=== PATIENT | male | born 1955 | race Caucasian/White ===

== ENCOUNTER → 2016-07-09 | Outpatient (CLI) | payer OTHER | LOC: FIMAGING 14:55 | PROVIDERS: ATTEND Orthopaedic Surgery | DX: Z01.818 Encounter for other preprocedural examination (principal); M17.11 Unilateral primary osteoarthritis, right knee ==

== ENCOUNTER 2016-07-31 08:11 | Inpatient (IN) | payer OTHER ==
[~2016-07-31 08:11] MED LIST: ACETAMINOPHEN 325 MG TAB PO ONE; BUPIVACAINE 0.25% 30 ML SDV ONE; BUPIVACAINE 0.5% 30 ML SDV ONE; BUPIVACAINE/EPI 0.25% 30 ML SDV ONE; BUPIVACAINE/EPI 0.5% 30 ML SDV ONE; CEFAZOLIN 2 GM/DEXTR 100 ML IV ONE; CHLORHEXIDINE GLUC HIBICLENS 118 ML BTL TP ONE; DEXAMETHASONE 4 MG/ML VIAL IVP ONE; FAMOTIDINE 20 MG TAB PO ONE; ROPI/epiNEPH/KETOROLAC JOINT COCKTAIL IU ONE; SKIN ADHESIVE (DERMABOND) 1 EACH TP ONE; TRANEXAMIC ACID 3,000 MG in NS 50 ML IRR ONE; TRANEXAMIC ACID 3,000 MG/50 ML BAG IRR ONE; VANCOMYCIN 1 GM VIAL IV ONE
[2016-07-31] MEDS ORDERED: FAMOTIDINE 20 MG TAB ONE (08:44)
[2016-07-31] MEDS ORDERED: CEFAZOLIN 2 GM/DEXTROSE/100 ML BAG IV ONE (08:44)
[2016-07-31] MEDS ORDERED: ACETAMINOPHEN 325 MG TAB ONE (08:44)
[2016-07-31] MEDS ORDERED: DEXAMETHASONE 4 MG/ML VIAL ONE (08:44)
[2016-07-31] MEDS ORDERED: LR 1,000 ML IV ONE (09:00)
[2016-07-31] MEDS ORDERED: MIDAZOLAM 2 MG/2 ML VIAL ONE (09:35)
[2016-07-31] MEDS ORDERED: fentaNYL 100 MCG/2 ML INJ ONE (09:43)
[2016-07-31] MEDS ORDERED: PROPOFOL/EMULSION 500 MG/50 ML BOTTLE IV ONE ×2 (09:44→10:21)
[2016-07-31] MEDS ORDERED: ONDANSETRON 4 MG/2 ML VIAL ONE (10:23)
[2016-07-31] MEDS ORDERED: PROPOFOL 200 MG/20 ML VIAL ONE ×2 (10:54→11:10)
[2016-07-31] MEDS ORDERED: MAGNESIUM HYDROXIDE 30 ML UDCUP PO PRN (11:29)
[2016-07-31] MEDS ORDERED: METOCLOPRAMIDE 10 MG/2 ML VIAL IVP PRN (11:29)
[2016-07-31] MEDS ORDERED: LACTULOSE 20 GM/30 ML UDCUP PO PRN (11:29)
[2016-07-31] MEDS ORDERED: BISACODYL 10 MG SUPP PR PRN (11:29)
[2016-07-31] MEDS ORDERED: diphenhydrAMINE 25 MG CAP PO PRN (11:29)
[2016-07-31] MEDS ORDERED: TEMAZEPAM 15 MG CAP PO PRN (11:29)
[2016-07-31] MEDS ORDERED: PROMETHAZINE HCL 25 MG/ML INJ IVP PRN (11:29)
[2016-07-31] MEDS ORDERED: DIPHENOXYLATE/ATROPINE LOMOTIL 1 TAB PO PRN (11:29)
[2016-07-31] MEDS ORDERED: PHARMACY PAIN CONSULT 1 EA MISC PRN (11:29)
[2016-07-31] MEDS ORDERED: POLYETHYLENE GLYCOL 3350 17 GM PKT PO PRN (11:29)
[2016-07-31] MEDS ORDERED: ONDANSETRON 4 MG/2 ML VIAL IVP PRN (11:29)
[2016-07-31] MEDS ORDERED: ONDANSETRON DISINTEGRATING 4 MG TAB PO PRN (11:29)
[2016-07-31] MEDS ORDERED: PROMETHAZINE HCL 25 MG SUPPR PR PRN (11:29)
--- NOTE | 2016-07-31 11:29 | POSTOPPROG ---
Post Op Note Date of Operation: 07/31/16 Surgeon: Nidhi Roland Hardboard Press Operator: fred roland Anesthesiologist: dr. hutchison Anesthesia: Spinal, Other (Specify) (adductor canal block) Pre-op Diagnosis: R TKA Post-op Diagnosis: same Indication: right knee pain due to OA that failed conservative measures Procedure: R TKA with robot assistance Findings: severe knee OA Inf/Abcess present in the surg proc area at time of surgery?: No EBL: 50-100
[2016-07-31] MEDS ORDERED: LR 1,000 ML IV SCH (11:30)
[2016-07-31] MEDS: ACETAMINOPHEN 325 MG TAB PO SCH ×4 (13:39→23:15)
[2016-07-31] MEDS: oxyCODONE IR 5 MG TAB PO PRN ×3 (13:59→21:04)
[2016-07-31] MEDS: CYCLOBENZAPRINE 10 MG TAB PO PRN ×2 (15:41→21:03)
[2016-07-31] MEDS: ceFAZolin 2 GM/DEXTROSE 100 ML IV SCH (18:13)
[2016-07-31] MEDS: ASPIRIN 325 MG TAB PO SCH (21:03)
[2016-07-31] MEDS: FAMOTIDINE 20 MG TAB PO SCH (21:03)
[2016-07-31] MEDS: SENNOSIDES/DOCUSATE SODIUM TAB PO SCH (21:04)
--- NOTE | 2016-07-31 21:56 | GOP ---
[f rep st] OPERATIVE REPORT DATE OF OPERATION: 07/31/2016 SURGEON: Paz Montaño MD TICKET BROKER: Dominga Montaño PA-C. ANESTHESIA: Spinal. PREOPERATIVE DIAGNOSIS: Right knee osteoarthritis. POSTOPERATIVE DIAGNOSIS: Right knee osteoarthritis. PROCEDURE PERFORMED: Right total knee arthroplasty with computer navigation and robotic assist. FINDINGS/PATHOLOGY: Severe tricompartmental osteoarthritis. ESTIMATED BLOOD LOSS: 30 cc. INDICATIONS: This is a 61-year-old male with severe and progressive pain and deformity of the right knee unresponsive to conservative care. Risks and benefits of the surgical intervention were explained in detail. DESCRIPTION OF PROCEDURE: The patient was brought to the operative room and placed on the table in the supine position. Spinal anesthesia was induced without difficulty. A pneumatic tourniquet was applied about the right proximal thigh, and the leg was prepped and draped in a sterile fashion. The leg archuleta was applied. After exsanguination by elevation the tourniquet was inflated to 275 mm of mercury. Incision was made anterior medial from the tibial tuberosity to a point 2 cm proximal to the superior pole of the patella. Medial parapatellar arthrotomy was carried out from the superior pole of the patella and posteriorly in line with the fibers of the Type II VMO. The medial collateral ligament was elevated and the infrapatellar fat pad was resected. The patella was everted and the articular surface was excised. A 40 mm patellar button was placed. Attention was turned first to the distal aspect of the right femur. At 3 cm proximal to the medial rise of the femur, 2 percutaneous half pins were placed for fixation of the femoral array. In a similar fashion, 2 pins were placed anteromedial on the tibia for fixation of the tibial array. External land marking and registration of the hip center was performed without difficulty. Internal femoral and tibial registration was carried out without difficulty and the femoral and tibial checkpoints were placed and verified for accuracy. Attention was turned to the femur. The foot print for the size 8 femoral component was cut with the saw using the PPDai robotic system and verified for accuracy against the CT based plan. In a similar fashion, saw was used to cut the footprint for the size 8 tibial component using the PPDai system and verified for accuracy against the CT based plan. The tibial articular surface was excised without difficulty, followed by the intercondylar box cut. The knee was extended and the remnants of the medial and lateral meniscus were excised. The posterior capsule was injected with ropivacaine, epinephrine and Toradol. A size 8 MIS mini-keel tibial tray was positioned. Trial reduction was then carried out. There was excellent range of motion, alignment, and stability using the 9 mm polyethylene. All trials were then removed. The joint was thoroughly irrigated and carefully dried. Two packages of cement and 2 grams of vancomycin were mixed in the vacuum mixer and placed on the fixation surfaces of all surfaces of the components. The components were implanted and all excess cement was thoroughly removed. The permanent 9 mm polyethylene was placed without difficulty. The tourniquet was deflated and all bleeders were coagulated. The wound was thoroughly irrigated and closed using interrupted sutures of 2-0 Vicryl for the joint capsule. The subcu was closed with 3-0 Vicryl and the skin with 4-0 Monocryl. Dermabond and Steri-Strips were applied followed by a compressive dressing. The patient was then moved from the operating room to the recovery room in good condition, having tolerated the procedure well. /[id number]/MODL MTDD
[2016-08-01] MEDS: ceFAZolin 2 GM/DEXTROSE 100 ML IV SCH (00:52)
[2016-08-01] MEDS: oxyCODONE IR 5 MG TAB PO PRN ×3 (02:44→10:45)
[2016-08-01] MEDS: ACETAMINOPHEN 325 MG TAB PO SCH ×2 (05:17→11:02)
[2016-08-01 05:49] LABS: HEMATOCRIT 34.2 % (40.0-51.0); HEMOGLOBIN 11.9 g/dL (13.7-17.5)
[2016-08-01] MEDS ORDERED: LEVOTHYROXINE 50 MCG TAB PO SCH (06:00)
[2016-08-01 08:24] VITALS: BP 107/75; PULSE 48; RESP 18; TEMP 98.2
[2016-08-01] MEDS: CYCLOBENZAPRINE 10 MG TAB PO PRN (08:31)
[2016-08-01] MEDS: ASPIRIN 325 MG TAB PO SCH (08:31)
[2016-08-01] MEDS: SENNOSIDES/DOCUSATE SODIUM TAB PO SCH (08:32)
[2016-08-01] MEDS: FAMOTIDINE 20 MG TAB PO SCH (08:32)
--- NOTE | 2016-08-01 09:17 | SOAPPROG ---
SOAP Progress Note Assessment/Plan: Assessment: Patient is doing well POD 1 s/p R TKA 1.Pain management: pain is well controlled on oral pain meds 2.Anemia: level is expected initially postop. Asymptomatic. Cont to monitor for symptoms 3.VTE ppx: recommend aspirin 325mg daily. Cont TIFFANIE joe and SCD 4. d/c planning: d/c to home today pending release from PT 5. muscle spasm: patient states flexeril alleviates pain, will send script via our EMR system to his pharmacy this morning. Plan: 08/01/16 09:15 08/01/16 09:15 Subjective: Valdo is doing well today, denies SOB, chest pain and N/v. states spasms improved with flexeril Objective: Vital Signs Temp Pulse Resp BP Pulse Ox 36.8 C 48 L 18 107/75 93 08/01/16 08:00 08/01/16 08:00 08/01/16 08:00 08/01/16 08:00 08/01/16 08:00 Laboratory Results 08/01/16 05:11 07/31/16 08/01/16 08/02/16 05:59 05:59 05:59 Intake Total 3171 Output Total 2100 Balance 1071 RLE: incision dressing is clean and dry, NVI, +pf/df ICD10 Worksheet Patient Problems: Problems Problem Status Onset Primary localized osteoarthritis of right knee Acute
[2016-08-01 10:02] VITALS: O2SAT 96
--- NOTE | 2016-08-01 11:21 | GDS ---
[f rep st] DISCHARGE SUMMARY ADMISSION DIAGNOSIS: Right knee osteoarthritis. DISCHARGE DIAGNOSIS: Right knee osteoarthritis. PROCEDURE: Right total knee arthroplasty. VTE PROPHYLAXIS: Aspirin recommended for 3 weeks daily. BRIEF DESCRIPTION OF HOSPITAL STAY: Patient was admitted for an elective joint arthroplasty. The p atient tolerated the procedure well and has passed physical therapy. The patient was given appropri ate antibiotic prophylaxis and venous thromboembolism prophylaxis. The patient's pain was well cont rolled on oral pain medication, patient was holding down food, and had urinated. Decision was made to discharge the patient. The patient was given post-operative prescriptions pre-operatively. PLAN: Please follow up with Dr. Montaño's office as scheduled August 20 at 4 p.m. /[id number]/MODL
== END 2016-08-01 11:13 | disposition home or self-care (01) | DRG 470 ==
LOC: F3E 08:11 → F3N 10:14 → EEVIPCON 12:15 → F3N 12:56
PROVIDERS: ADMIT Orthopaedic Surgery; ATTEND Orthopaedic Surgery
DX: M17.11 Unilateral primary osteoarthritis, right knee (principal)
CPT/HCPCS: 97110-GP; 97116-GP; 97161-GP; 97165-GO; 97530-GP; C1713; J0171; J0690; J1100; J1885; J2250; J2405; J2704; J2795; J3010; J3370

== ENCOUNTER → 2016-08-09 | Outpatient (CLI) | payer OTHER | LOC: FIMAGING 15:45 | PROVIDERS: ATTEND Orthopaedic Surgery | DX: M79.661 Pain in right lower leg (principal); M79.89 Other specified soft tissue disorders; Z96.651 Presence of right artificial knee joint ==

== ENCOUNTER 2016-08-11 08:58 | Emergency (ER) | payer OTHER ==
[2016-08-11 09:03] VITALS: BP 133/88; PULSE 67; RESP 18; O2SAT 94
--- NOTE | 2016-08-11 09:09 | EDPHY ---
H & P Stated Complaint: right knee replacement 07/31, sudden sharp pain starting 0115 Time Seen by Provider: 08/11/16 09:08 HPI/ROS: CHIEF COMPLAINT: Right knee pain and swelling status post knee replacement July 31 HISTORY OF PRESENT ILLNESS: Patient presents to the ED with acute right knee pain and swelling that began after he sustained a mild twisting injury earlier today. The patient is status post knee replacement surgery on July 31 of this year. The patient has been evaluated recently for possible DVT secondary to right calf pain and swelling with a negative lower extremity ultrasound. The patient denies any acute numbness or weakness. He denies fever. His symptoms began acutely after sustaining a twisting injury earlier this morning. The patient reports marked swelling along the knee joint. He reports that he is unable to bear weight. REVIEW OF SYSTEMS: A comprehensive 10 point review of systems is otherwise negative aside from elements mentioned in the history of present illness. Source: Patient Exam Limitations: No limitations - Personal History Current Tetanus/Diphtheria Vaccine: Yes Current Tetanus Diphtheria and Acellular Pertussis (TDAP): Yes Tetanus Vaccine Date: < 10 years - Medical/Surgical History Hx Asthma: No Hx Chronic Respiratory Disease: No Hx Diabetes: No Hx Cardiac Disease: No Hx Renal Disease: No Hx Cirrhosis: No Hx Alcoholism: No Hx HIV/AIDS: No Hx Splenectomy or Spleen Trauma: No Other PMH: [place] virus. total right knee. hypothyroid - Social History Smoking Status: Never smoked - Physical Exam Exam: General Appearance: Alert, no distress Eyes: Pupils equal and round no pallor or injection Respiratory: There are no retractions, lungs are clear to auscultation Cardiovascular: Regular rate and rhythm Gastrointestinal: Abdomen is soft and nontender, no masses, bowel sounds normal Neurological: Sensation intact to light touch throughout the right lower extremity, normal motor function noted to right lower extremity Skin: Surgical incision clean dry and intact Extremities: Postoperative ecchymosis noted, right joint effusion, minimal post at operative erythema Constitutional: Initial Vital Signs Temperature (C) 36.7 C 08/11/16 09:01 Heart Rate 67 08/11/16 09:01 Respiratory Rate 18 08/11/16 09:01 Blood Pressure 133/88 H 08/11/16 09:01 O2 Sat (%) 94 08/11/16 09:01 O2 Delivery Mode Room Air Allergies/Adverse Reactions: milk Allergy (Severe, Verified 08/11/16 09:00) Unknown Home Medications: Medication Instructions Recorded Levothyroxine [Synthroid 50 mcg 50 mcg PO HS 06/28/16 (*)] Acetaminophen [Tylenol 325mg (*)] 650 mg PO Q6HRS #0 tab 08/01/16 Aspirin [Aspirin 325 mg (*)] 325 mg PO DAILY #0 tab 08/01/16 Cyclobenzaprine [Flexeril 10 MG 10 mg PO Q8HRS PRN #0 tab 08/01/16 (*)] Sennosides/Docusate Sodium 1 - 2 tab PO BID #0 tab 08/01/16 [Senokot-S] celeCOXIB [Celebrex (*)] 200 mg PO DAILY #0 cap 08/01/16 oxyCODONE IR [Oxycodone Ir (*)] 5 - 10 mg PO Q3HRS PRN #0 tab 08/01/16 Medical Decision Making - Diagnostics Imaging: Right knee x-ray: No evidence of hardware failure or acute fracture, joint effusion noted. Images reviewed by myself and discussed with radiologist. ED Course/Re-evaluation: The patient presents to the ED with a likely hemarthrosis following a twisting injury. The patient was verbally consented to undergo a aspiration of his right knee joint following consultation with Dr. Kieran Montaño the patient's primary orthopedic surgeon. Under sterile conditions I attempted a arthrocentesis however was unable to aspirate a liquid hemarthrosis. The patient did appear to have a consolidated clot which aspirated into the syringe. I did consult with Dr. Kieran Montaño. The patient will be discharged home with crutches. He will follow up with Orthopedic surgery for a recheck in the coming days. The patient will be advised to return to the ED for fever, markedly worsening pain or other concerns. The patient was seen in consultation by OMID Perez who attempted a prepatellar aspiration with similar results. The patient will be discharged home with crutches. A prescription for Zofran, he is given additional pair of Sidney hose and a 4 inch Misael wrap. Differential Diagnosis: Differential diagnosis considered includes prostatic fracture, hardware failure , hemarthrosis, septic arthritis - Data Points Medications Given: Discontinued Medications Ondansetron HCl (Zofran Odt) 4 mg PO EDNOW ONE Stop: 08/11/16 11:11 Last Admin: 08/11/16 11:11 Dose: 4 mg Oxycodone/Acetaminophen (Percocet 5/325) 1 tab PO EDNOW ONE Stop: 08/11/16 09:29 Last Admin: 08/11/16 09:28 Dose: 1 tab Departure - Departure Disposition: Home, Routine, Self-Care Clinical Impression: Hemarthrosis following procedure Condition: Good Instructions: Hemarthrosis (ED) Additional Instructions: 1. Crutches as needed for support with ambulation. 2. Please return to the ED for fever, markedly worsening pain or other concerns. 3. Please follow up as scheduled with Dr. Kieran Montaño. Referrals: Nidhi Montaño MD [Medical Doctor] - As per Instructions
[2016-08-11] MEDS ORDERED: OXYCODONE/APAP 5/325 TAB ONE (09:21)
[2016-08-11] MEDS ORDERED: OXYCODONE/APAP 5/325 TAB PO ONE ×2 (09:28→11:29)
[2016-08-11] MEDS ORDERED: ONDANSETRON DISINTEGRATING 4 MG TAB ONE (11:09)
[2016-08-11] MEDS ORDERED: ONDANSETRON DISINTEGRATING 4 MG TAB PO ONE (11:10)
[2016-08-11 12:15] VITALS: TEMP 98.2
--- NOTE | 2016-08-12 22:36 | GCON ---
[f rep st] CONSULTATION ORTHOPEDIC CONSULT CHIEF COMPLAINT: Acute onset right knee pain in setting of recent TKA by Dr. Montaño. HISTORY OF PRESENT ILLNESS: The patient presents to the ED today due to sudden increase in pain while walking today. ED physician, Gray Candelaria, called for consult in regards to the patient. The patient describes an incident where he was walking to the bathroom and took a step, no twisting, no falls, no trauma, and had an increase in immediate swelling and pain in the right knee. Patient denies fever and chills. Patient states pain is terrible and uncontrollable. Patient states that he last took an oxycodone one 5 mg tablets 4 hours ago. The patient states he has difficulty with range of motion now and putting weight on it due to pain. Prior to the incident this morning, patient states he was doing really well. REVIEW OF SYSTEMS: See HPI. PAST MEDICAL HISTORY: Significant for a recent right TKA. PHYSICAL EXAM: GENERAL: Patient is resting comfortably in bed, no acute distress. MUSCULOSKELETAL: The patient has ecchymosis along his entire right lower leg and upper thigh. The patient has effusion of the right knee joint and prepatellar space. The patient is tender to palpation over his anterior knee. Mildly tender to palpation medial and lateral joint lines. Active extension is intact. The patient is able to move the leg although limited due to pain. Range of motion 10-50. IMAGING: X-rays were reviewed with Dr. Montaño. No acute fractures and no changes since last x-rays taken postoperatively after surgery. IMPRESSION: A male with right prepatellar effusion, possible joint hemarthrosis as well, in setting of recent right total knee arthroplasty. PLAN: Discussed patient with Dr. Montaño. Attempted a knee prepatellar aspiration, withdrew about 6 cc of bloody fluid, which did not successful remove the fluid present. The patient tolerated the procedure well. Discussed in length with the patient pain control including that patient should increase his oxycodone intake because he has only been taking 5 mg every 4 hours. If needed, he may take up to 15 mg Q3 hours. The patient states he is comfortable with going home. States as long as he can use the crutches and get around he should be able to d/c to home. The patient has his friend, Dr. Caceres, present with him, who will be driving him home as his is disabled and may have difficulty driving him home. PROCEDURE: Right knee prepatellar aspiration done in a sterile fashion. 2 cc of 1% lidocaine were injected. 6 cc of bloody aspiration was removed. Patient tolerated the procedure well. Follow up in 2 days in clinic, earlier if issues arise. /[id number]/MODL MTDD
== END 2016-08-11 12:19 | disposition home or self-care (01) ==
DX: T84.89XA Other specified complication of internal orthopedic prosthetic devices, implants and grafts, initial encounter (principal); Y79.2 Prosthetic and other implants, materials and accessory orthopedic devices associated with adverse incidents

== ENCOUNTER 2016-08-12 00:25 | Inpatient (IN) | payer OTHER ==
[2016-08-12] MEDS ORDERED: HYDROmorphONE/DILAUDID 6 MG/30 ML PCA IV ONE (01:26)
[2016-08-12] MEDS ORDERED: TEMAZEPAM 15 MG CAP PO PRN (02:23)
[2016-08-12] MEDS ORDERED: ONDANSETRON 4 MG/2 ML VIAL IVP PRN (02:23)
[2016-08-12] MEDS ORDERED: ONDANSETRON DISINTEGRATING 4 MG TAB PO PRN (02:23)
[2016-08-12] MEDS ORDERED: NALOXONE HCL 0.4 MG/ML INJ IVP PRN (02:24)
[2016-08-12] MEDS ORDERED: HYDROmorphONE/DILAUDID 6 MG/30 ML PCA IV PRN (02:24)
[2016-08-12] MEDS ORDERED: HYDROmorphONE/DILAUDID 1 MG/ML SYR IVP PRN ×2 (02:25→23:55)
[2016-08-12] MEDS: oxyCODONE IR 5 MG TAB PO PRN ×6 (03:01→23:20)
[2016-08-12 05:02] LABS: % IMMATURE GRANULYOCYTES 0.4 % (0.0-1.1); ABSOLUTE IMMATURE GRANULOCYTES 0.04 10^3/uL (0.00-0.10); ADD DIFF? NO; ADD MORPH? NO; ADD SCAN? NO; ATYPICAL LYMPHOCYTE FLAG 10 (0-99); FRAGMENT RBC FLAG 0 (0-99); HEMATOCRIT 32.8 % (40.0-51.0); HEMOGLOBIN 11.3 g/dL (13.7-17.5); LEFT SHIFT FLG 0 (0-99); LIPEMIA HEMOLYSIS FLAG 90 (0-99); MEAN CELL HEMOGLOBIN CONCENTR. 34.5 g/dL (32.4-36.7); MEAN CELL VOLUME 89.9 fL (81.5-99.8); MEAN PLATELET VOLUME 8.9 fL (8.7-11.7); PLATELET CLUMPS FLAG 0 (0-99); PLATELET COUNT 284 10^3/uL (150-400); RED BLOOD CELL COUNT 3.65 10^6/uL (4.40-6.38); RED CELL DISTRIBUTION WIDTH 12.6 % (11.5-15.2)
[2016-08-12 05:23] LABS: ALANINE AMINOTRANSFERASE 64 IU/L (21-72); ALBUMIN 3.3 g/dL (3.5-5.0); ALKALINE PHOSPHATASE 68 IU/L (38-126); ANION GAP 10 mEq/L (8-16); ASPARTATE AMINOTRANSFERASE 38 IU/L (17-59); BILIRUBIN,TOTAL 1.4 mg/dL (0.1-1.4); CALCIUM 8.4 mg/dL (8.5-10.4); CARBON DIOXIDE 25 mEq/l (22-31); CHLORIDE 103 mEq/L (97-110); CREATININE 0.8 mg/dL (0.7-1.3); GLOMERULAR FILTRATION RATE > 60; GLUCOSE 109 mg/dL (70-100); POTASSIUM 4.1 mEq/L (3.5-5.2); SODIUM 138 mEq/L (134-144); TOTAL PROTEIN 6.2 g/dL (6.3-8.2)
--- NOTE | 2016-08-12 07:59 | GHP ---
[f rep st] HISTORY AND PHYSICAL DATE OF ADMISSION: 08/12/2016 CHIEF COMPLAINT: Right leg swelling. HISTORY OF PRESENT ILLNESS: This is a 61-year-old male with really no past medical history. He und erwent right knee arthroplasty 2 weeks ago. He had been doing well until 2 nights ago, when he was walking and he felt a sudden onset of pain and swelling in the right knee. This has worsened. He c mj to the emergency department yesterday morning and both the ER doctor and Dr. Montaño's PA atte mpted to aspirate the knee, but was unable to. He was sent home at that time and instructed to cont inue pain control. However, pain became a lot worse and he went to the emergency room at [facility], who then transferred him here. Currently the pain is better with Dilaudid SENIOR HEALTH EDUCATOR. He does not h ave any fevers or chills. He denies any chest pain or shortness of breath. No previous history of blood clots. REVIEW OF SYSTEMS: A 10-point review of systems was obtained and other than stated, was negative. PAST MEDICAL HISTORY: Hypothyroidism. MEDICATIONS: Oxycodone, aspirin, Celebrex, levothyroxine. SOCIAL HISTORY: No smoking or alcohol. FAMILY HISTORY: Reviewed and noncontributory. PHYSICAL EXAM: VITAL SIGNS: Afebrile, blood pressure is 123/65, heart rate 50, oxygen saturation 9 5% on 2 L. GENERAL: Patient is well-developed, in no apparent distress. HEENT: Nonicteric sclera e. Extraocular movements intact. Moist mucous membranes. NECK: Supple. No thyromegaly. LUNGS: Good effort. Clear to auscultation bilaterally. CARDIOVASCULAR: Regular rate and rhythm. No mur murs, rubs, or gallops. ABDOMEN: Positive bowel sounds. Soft, nontender, nondistended. No hepato splenomegaly. EXTREMITIES: Right knee with significant amount of swelling extending down to his le g. NEUROLOGIC: Alert and oriented x3. Moving all 4 extremities equally. PSYCH: Normal affect. LABORATORY DATA: White count 10, hemoglobin 11, platelets are 284. Sodium 138, potassium 4.1, BUN 23, creatinine 0.8. Ultrasound done 2 days ago showed no DVT. Knee x-ray done yesterday morning shows a joint effusion. ASSESSMENT: 61-year-old male, status post knee arthroplasty with probable hematoma, admitted for pa in control. PLAN: Will notify Dr. Montaño. Continue Dilaudid SENIOR HEALTH EDUCATOR. At this point, I am going to hold his asp irin and Celebrex, but at some point we do need to reinstitute DVT prophylaxis. /[id number]/MODL
[2016-08-12] MEDS: DIAZEPAM 5 MG TAB PO PRN ×3 (10:40→23:20)
[2016-08-12] MEDS: ASPIRIN 325 MG TAB PO SCH (10:40)
[2016-08-12] MEDS: CYCLOBENZAPRINE 10 MG TAB PO PRN ×2 (13:02→19:52)
[2016-08-12] MEDS ORDERED: CYCLOBENZAPRINE 10 MG TAB PO PRN (14:42)
--- NOTE | 2016-08-12 15:07 | HOSPPROG ---
Hospitalist Progress Note Assessment/Plan: #Acute knee pain: due to hematoma. Sabra to reevaluate in morning. Possibly surgery. Cont PO oxycodone # Subjective: pain better controlled this afternoon. Objective: Vital Signs Temp Pulse Resp BP Pulse Ox 36.8 C 65 18 101/58 L 89 L 08/12/16 07:43 08/12/16 07:43 08/12/16 07:43 08/12/16 07:43 08/12/16 07:43 Laboratory Results 08/12/16 04:19 08/12/16 04:19 08/11/16 08/12/16 08/13/16 05:59 05:59 05:59 Intake Total 150 2.4 Output Total 500 Balance 150 -497.6 - Physical Exam Constitutional: no apparent distress Ears, Nose, Mouth, Throat: moist mucous membranes, hearing normal Cardiovascular: regular rate and rhythym Respiratory: no respiratory distress Gastrointestinal: normoactive bowel sounds Musculoskeletal: other (right knee with swelling, hematoma up thigh.) Neurologic: AAOx3, CN II-XII Intact ICD10 Worksheet Patient Problems: Problems Problem Status Onset Primary localized osteoarthritis of right knee Acute
[2016-08-12] MEDS: LEVOTHYROXINE 50 MCG TAB PO SCH (19:52)
[2016-08-13] MEDS ORDERED: HYDROmorphONE/DILAUDID 1 MG/ML SYR ONE ×2 (00:06→14:22)
--- NOTE | 2016-08-13 01:12 | GCON ---
[f rep st] CONSULTATION ORTHOPEDIC CONSULTATION HISTORY: The patient is a gentleman who underwent a right total knee replacement approximately 2 we eks ago, was doing well until this weekend when he started having muscle spasms, pain and swelling i n his leg, was seen in the emergency room on Friday, thought he had his pain controlled. He started having more spasms, and was seen in the emergency room up in [place], brought back down to [facility], and admitted to the Hospitalist service, and he is now being transferred over to the Orthopedic service. He denies any fever or chills. States when his leg is resting, that he usu ally has pain 3/4, when he starts having muscle spasms, it goes to a pain of 10/10. He has marked s welling in the knee. Had attempted deep aspiration by the emergency room, prepatellar aspiration by the PA, Dominga Montaño, yesterday, without any success. PHYSICAL EXAMINATION: VITAL SIGNS: Stable. PAST MEDICAL HISTORY: Please see admission history and physical. MEDICATIONS: Please see admission history and physical. Significant for aspirin for DVT prophylaxi s. LABORATORY DATA: On recent studies, the patient had a venous duplex on Friday, which was negative f or blood clot. He has an x-ray which shows no fracture or change in components. Labs are within normal range, slightly anemic. ASSESSMENT AND PLAN: The patient is a gentleman status post a right total knee replacement, with mu scle spasms and a hematoma. At this time, recommend patient to be started on Flexeril and Valium fo r muscle spasms, oxycodone for pain; we will discontinue his Dilaudid CORPORATE WEBMASTER, discontinue his p.r.n. Di laudid, for physical therapy. If patient is not able to improve, we will contemplate an irrigation and debridement of his hematoma. The patient also underwent 2 attempts at aspiration of his supra/prepatellar area with no fluid able to be expressed. He had an SUSIE wrap placed from his t oes to just above his knee. He should keep that in place. He is weightbearing as tolerated. He ca n do activity as tolerated. We will continue to follow. /[id number]/MODL
[2016-08-13] MEDS: oxyCODONE IR 5 MG TAB PO PRN ×5 (02:52→21:01)
[2016-08-13] MEDS: CYCLOBENZAPRINE 10 MG TAB PO PRN ×3 (02:53→23:59)
[2016-08-13] MEDS: ASPIRIN 325 MG TAB PO SCH (07:47)
[2016-08-13] MEDS: DIAZEPAM 5 MG TAB PO PRN ×3 (07:48→21:09)
[2016-08-13] MEDS ORDERED: BUPIVACAINE/EPI 0.5% 30 ML SDV ONE (09:39)
[2016-08-13] MEDS ORDERED: POLYMYXIN B SULFATE 500,000 UNIT/10 ML SYR IRR ONE (09:40)
[2016-08-13] MEDS ORDERED: LIDOCAINE 1% 30 ML SDV ONE (09:40)
[2016-08-13] MEDS ORDERED: BACITRACIN 50,000 UNITS/10 ML SYR IRR ONE (09:40)
[2016-08-13] MEDS ORDERED: MIDAZOLAM 2 MG/2 ML VIAL ONE (12:27)
[2016-08-13] MEDS ORDERED: CEFAZOLIN 2 GM/DEXTROSE/100 ML BAG IV ONE (12:27)
[2016-08-13] MEDS ORDERED: fentaNYL 100 MCG/2 ML INJ ONE ×2 (12:30)
[2016-08-13] MEDS ORDERED: PROPOFOL 200 MG/20 ML VIAL ONE (12:31)
[2016-08-13] MEDS ORDERED: PROPOFOL/EMULSION 500 MG/50 ML BOTTLE IV ONE (12:31)
[2016-08-13] MEDS ORDERED: ONDANSETRON 4 MG/2 ML VIAL ONE (12:41)
[2016-08-13] MEDS ORDERED: TRANEXAMIC ACID 3,000 MG in NS 50 ML IRR ONE (13:00)
[2016-08-13] MEDS ORDERED: ACETAMINOPHEN 325 MG TAB PO ONE (13:00)
[2016-08-13] MEDS ORDERED: FAMOTIDINE 20 MG TAB PO ONE (13:00)
[2016-08-13] MEDS ORDERED: METOCLOPRAMIDE 10 MG/2 ML VIAL ONE (13:02)
[2016-08-13] MEDS ORDERED: PHARMACY PAIN CONSULT 1 EA MISC PRN (13:19)
[2016-08-13] MEDS ORDERED: diphenhydrAMINE 25 MG CAP PO PRN (13:19)
[2016-08-13] MEDS ORDERED: POLYETHYLENE GLYCOL 3350 17 GM PKT PO PRN (13:19)
[2016-08-13] MEDS ORDERED: LACTULOSE 20 GM/30 ML UDCUP PO PRN (13:19)
[2016-08-13] MEDS ORDERED: DIPHENOXYLATE/ATROPINE LOMOTIL 1 TAB PO PRN (13:19)
[2016-08-13] MEDS ORDERED: METOCLOPRAMIDE 10 MG/2 ML VIAL IVP PRN (13:19)
[2016-08-13] MEDS ORDERED: BISACODYL 10 MG SUPP PR PRN (13:19)
[2016-08-13] MEDS ORDERED: MAGNESIUM HYDROXIDE 30 ML UDCUP PO PRN (13:19)
--- NOTE | 2016-08-13 13:24 | POSTOPPROG ---
Post Op Note Date of Operation: 08/13/16 Surgeon: Nidhi Montaño Anesthesiologist: Braulio Anesthesia: LMA Pre-op Diagnosis: R knee postop hematoma Post-op Diagnosis: same Indication: I&D R knee Findings: supoerficial hematoma R knee Inf/Abcess present in the surg proc area at time of surgery?: No EBL: 50-100
[2016-08-13] MEDS ORDERED: LR 1,000 ML IV SCH (13:30)
--- NOTE | 2016-08-13 13:59 | GOP ---
[f rep st] OPERATIVE REPORT DATE OF OPERATION: 08/13/2016 SURGEON: Paz Montaño MD ANESTHESIA: LMA. PREOPERATIVE DIAGNOSIS: Right knee postoperative hematoma. POSTOPERATIVE DIAGNOSIS: Right knee postoperative hematoma. PROCEDURE PERFORMED: Right knee superficial irrigation and debridement of a hematoma. FINDINGS: A large amount of hematoma was evacuated, superficial. The entire arthrotomy was found t o be intact with no issues. INDICATIONS: The patient is a 61-year-old gentleman, status post a right total [facility]. He was doing well until this last Friday. Was up, walking around, felt a n increase in pain and swelling, was having difficulty controlling pain and muscle spasms. Multiple attempts at aspiration were made for the knee, both in the prepatellar bursa and the joint, and no fluid was able to be aspirated. He had obvious pain and swelling. Risks and benefits were discusse d with the patient, including operative and nonoperative intervention. The decision was made to pro ceed with irrigation and debridement of his hematoma. Informed consent was obtained. DESCRIPTION OF PROCEDURE: The patient was identified in the preoperative holding area. His right l ower extremity was marked. He was then brought back to the operating room. After induction of anes thesia, he was prepped and draped in the usual sterile fashion. A time-out was taken to confirm the patient, laterality of the procedure, as well as antibiotic status. We started with an incision at the proximal end of his incision, extended this up approximately 1 inch. We were able to see a lar ge amount of hematoma. This was able to be evacuated. We copiously irrigated and then placed 3 g o f tranexamic acid 50 mL topically. The incision was then dried. Suction was used to remove any rem aining hematoma. The incision was closed in layers with Vicryl sutures and tyler. He was placed in a sterile dressing, awakened, and brought to PACU in good condition with a well-perfused limb. The plan will be to admit the patient to Orthopedic Service. He will be weightbearing as tolerated. He will follow the standard total knee protocol. /[id number]/MODL
[2016-08-13] MEDS ORDERED: HYDROmorphONE/DILAUDID 2 MG TAB PO PRN (15:25)
--- NOTE | 2016-08-13 15:37 | HOSPPROG ---
Hospitalist Progress Note Assessment/Plan: #Acute knee pain: due to hematoma. Per , pain was never controlled at home on Oxycodone and it caused a lot of nausea. Will trial PO Dilaudid here. #Right knee hematoma: s/p irrigation/debridement today. PT and precautions per Ortho #Diet: regular #DVT ppx: SCDs #Disp: warrants inpt admission needing Pain control, PT/OT Subjective: underwent irrigation and bebridement of hematoma today Objective: Vital Signs Temp Pulse Resp BP Pulse Ox 37 C 54 L 14 128/77 H 99 08/13/16 14:10 08/13/16 14:56 08/13/16 14:56 08/13/16 14:56 08/13/16 14:56 Laboratory Results 08/12/16 04:19 08/12/16 04:19 08/12/16 08/13/16 08/14/16 05:59 05:59 05:59 Intake Total 150 2102.4 800 Output Total 1450 1010 Balance 150 652.4 -210 - Physical Exam Constitutional: no apparent distress, other (groggy from anesthesia) Eyes: PERRL Ears, Nose, Mouth, Throat: moist mucous membranes Cardiovascular: regular rate and rhythym, no murmur, rub, or gallop Respiratory: no respiratory distress Gastrointestinal: normoactive bowel sounds Skin: warm Musculoskeletal: other (right knee wrapped, elevated) Neurologic: AAOx3 Psychiatric: interacting appropriately ICD10 Worksheet Patient Problems: Problems Problem Status Onset Primary localized osteoarthritis of right knee Acute
[2016-08-13] MEDS: SENNOSIDES/DOCUSATE SODIUM TAB PO SCH (21:01)
[2016-08-13] MEDS: LEVOTHYROXINE 50 MCG TAB PO SCH (21:01)
[2016-08-13] MEDS: FAMOTIDINE 20 MG TAB PO SCH (21:38)
[2016-08-14] MEDS: DIAZEPAM 5 MG TAB PO PRN ×3 (03:15→17:27)
[2016-08-14] MEDS: oxyCODONE IR 5 MG TAB PO PRN ×5 (03:15→21:24)
[2016-08-14 05:12] LABS: HEMATOCRIT 34.1 % (40.0-51.0); HEMOGLOBIN 11.4 g/dL (13.7-17.5)
[2016-08-14] MEDS: ASPIRIN 325 MG TAB PO SCH (07:31)
[2016-08-14] MEDS: SENNOSIDES/DOCUSATE SODIUM TAB PO SCH ×2 (07:31→20:07)
[2016-08-14] MEDS: ACETAMINOPHEN 325 MG TAB PO PRN ×3 (07:31→20:08)
[2016-08-14] MEDS: FAMOTIDINE 20 MG TAB PO SCH ×2 (07:32→20:08)
[2016-08-14] MEDS: CYCLOBENZAPRINE 10 MG TAB PO PRN ×2 (07:32→16:04)
--- NOTE | 2016-08-14 15:29 | SOAPPROG ---
SOAP Progress Note Assessment/Plan: Assessment: 2 wks s/p R TKA now POD1 s/p hematoma I&DR knee doing well pain better still feels stiff wondering if he can stay an extra night rec TEDs needs 24h off IV pain meds before he can go home likely d/c tomorrow appreciate hospitalist help ASA for VTE ppx Plan: 08/14/16 15:28 Objective: Vital Signs Temp Pulse Resp BP Pulse Ox 37.1 C 61 14 117/58 L 90 L 08/14/16 11:38 08/14/16 11:38 08/14/16 11:38 08/14/16 11:38 08/14/16 11:38 Laboratory Results 08/14/16 04:41 08/12/16 04:19 08/13/16 08/14/16 08/15/16 05:59 05:59 05:59 Intake Total 2102.4 2150 Output Total 1450 2160 Balance 652.4 -10 ICD10 Worksheet Patient Problems: Problems Problem Status Onset Primary localized osteoarthritis of right knee Acute
[2016-08-14] MEDS: LEVOTHYROXINE 50 MCG TAB PO SCH (20:07)
[2016-08-15] MEDS: DIAZEPAM 5 MG TAB PO PRN (00:25)
[2016-08-15] MEDS: oxyCODONE IR 5 MG TAB PO PRN ×3 (01:48→12:01)
[2016-08-15 07:37] VITALS: BP 132/76; PULSE 59; RESP 12; TEMP 98.4; O2SAT 91
[2016-08-15] MEDS: SENNOSIDES/DOCUSATE SODIUM TAB PO SCH (08:12)
[2016-08-15] MEDS: ASPIRIN 325 MG TAB PO SCH (08:12)
[2016-08-15] MEDS: FAMOTIDINE 20 MG TAB PO SCH (08:12)
--- NOTE | 2016-08-15 22:06 | SOAPPROG ---
SOAP Progress Note Assessment/Plan: Assessment: Valdo is doing better s/p hematoma in setting of recent R TKA pain well controlled on oral pain meds anemia: level expected initially postop. asymptomatic VTE ppx: recommend ASA daily.cont TIFFANIE diaz d/c planning: d/c to home pending release from PT provided scrips for narcotic pain meds and muscle relaxants Plan: 08/15/16 22:04 Subjective: patient states muscle spasms have improved, denies issues, states pain has improved Objective: Vital Signs Temp Pulse Resp BP Pulse Ox 36.9 C 59 L 12 132/76 H 91 L 08/15/16 07:36 08/15/16 07:36 08/15/16 07:36 08/15/16 07:36 08/15/16 07:36 Laboratory Results 08/14/16 04:41 08/12/16 04:19 08/14/16 08/15/16 08/16/16 05:59 05:59 05:59 Intake Total 2150 600 Output Total 2160 700 Balance -10 -100 RLE: incision dressing is clean and dry, NVI, ICD10 Worksheet Patient Problems: Problems Problem Status Onset Hematoma Acute Primary localized osteoarthritis of right knee Acute
== END 2016-08-15 13:04 | disposition home or self-care (01) | DRG 921 ==
LOC: F3N 00:26 → OBSVTOIN 08-13 15:34
PROVIDERS: ADMIT Internal Medicine; ATTEND Internal Medicine
PROC: 0JCL0ZZ Extirpation of Matter from Right Upper Leg Subcutaneous Tissue and Fascia, Open Approach (ICD-10-PCS; principal; 2016-08-13 12:15)
DX: M96.840 Postprocedural hematoma of a musculoskeletal structure following a musculoskeletal system procedure (principal); E03.9 Hypothyroidism, unspecified; Z96.651 Presence of right artificial knee joint
CPT/HCPCS: 97116-GP; 97161-GP; 97165-GO; 97530-GO; 97530-GP; 97535-GO; G0378; J0690; J1170; J2250; J2405; J2704; J2765; J3010